=== PATIENT | male | born 1975 | race Hispanic/Latino ===

== ENCOUNTER 2021-09-12 08:00 | Outpatient (RCR) | payer BC, SELFPAY ==
--- NOTE | 2021-08-28 15:40 | PTOPEVAL ---
PHYSICAL THERAPY EVALUATION AND PLAN OF CARE 08-28-21 Thank you for referring Elmer Walls to [facility].? He is scheduled to be seen for therapy? 1x/week for 3 weeks. Please review, sign, date and return this plan of care IFRAH. I agree with and certify that the following plan of care is medically necessary. Referring Physician Date Attending Provider: Deejay Valentino DO CC: Júnior Chaudhry MD, per pt request *PT Outpatient Evaluation Document 08/28/21 14:30 LOIS (Rec: 08/28/21 15:40 LOIS [id number]) Past Medical History Source of Past Medical History Patient Neurological History Hx Neurological Disorders No Significant History Cardiovascular History Hx Hypercholesterolemia Yes: just started meds Respiratory History Hx Respiratory Disorders No Significant History Gastrointestinal History Hx Gastrointestinal Disorders No Significant History Musculoskeletal History Hx Musculoskeletal Disorders No Significant History Endocrine History Hx Endocrine Disorders No Significant History Evaluation Information Problem Diagnosis R lower leg pain Onset Aug 18, 2021 Subjective Information running, 07/29 marathon, about Query Text:As Reported By Patient/ mile 9 felt discomfort in calf Family , completed race; then had more pain after race, where issues with walking and putting wt on it; used cane to decrease wt on leg; rest 5 days, tried running, felt still something wrong with calf; have been elevating, heat and ice saw ortho yesterday--said strain gastroc muscle; said he could return to fitness center for UE exercises and some LE strength as tolerated; hold off on running for 2-3 weeks; is getting better and less pain since onset; Diagnostic Tests X-Rays For This Problem No Prior Level of Function Activity Level (Last 3 Months) Occupation office work, working from home ; Home Setting Mobility Assistive Devices (Used Last 3 None,Cane Months) Comments Additional Prior Level of Function normally use stand up desk, Comments but since calf pain, have been sitting for office work; normal fitness: run 5-7 miles/
--- NOTE | 2021-09-10 16:04 | PCPTNOTE ---
Patient called & cancelled scheduled appointment this date and changed re-eval to earlier date.
--- NOTE | 2021-09-12 08:53 | PTOPEVAL ---
PHYSICAL THERAPY DISCHARGE 09-12-21 Refer to the clinical summary below, for his status today, compared to the initial evaluation. The goals were achieved; he will be discharged from PT at this time. Thank you for referring Elmer Walls to [facility].? Please review, sign, date and return this Discharge report IFRAH. I agree with and certify that the following plan of care is medically necessary. Referring Physician Date Attending Provider: Deejay Valentino DO CC: Júnior Chaudhry MD, per pt request Assessment Status Discharge Subjective Information Elmer reports: has returned Query Text:As Reported By Patient/ to all of the usual fitness Family exercises but running; is doing eclliptical machine for 2 hours; is not sure about running again, worried about getting back to it again and not sure if calf is ready; is doing his exercises at home, stretching ankle over step; agree to discharge from PT; Pain Assessment Timing of Pain Assessment Timing of Pain Assessment Assessment Self Report Self Report Pain Level 0 Pain Score Pain Score 0: Self Report Additional Pain Score Comments B calves sore after work out Lower Extremity Muscle Strength Testing General Lower Extremity Strength Gross Lower Extremity Strength functional strength testing: - single leg standing R 60 /L 60 seconds- with good hip and trunk stability; ankle motion B; - single leg PF R 39 /L 30 reps- performed with shoes, have increased lateral motion of WB on foot; when shoes removed, less lateral motion of ankle; performed in front of mirror for visual cues to improve; - stand on BOSU board- ankle stabilization with DF/PF, in/ eversion; single leg standing with PRN touch of fingers on parallel bars; during activities, no reports of pain or issues with R calf verbal review of HEP: continue stretching, strengthening; progression of activity/ running as tolerated. using
== END 2021-09-13 08:49 | disposition home or self-care (01) ==
LOC: ANHPT 08:00
PROVIDERS: PCP Internal Medicine; Visit Provider Internal Medicine
DX: M79.661 Pain in right lower leg (principal)
CPT/HCPCS: 97110; 97161

== ENCOUNTER 2022-03-28 12:09 | Outpatient (CLI) | payer BC, SELFPAY ==
--- NOTE | ~2022-03-28 | US_ITS ---
EXAMINATION: US soft tissue head and neck DATE: 03/28/2022 13:07 INDICATION: Localized swelling, mass and lump, neck. TECHNIQUE: Multiple grayscale and Doppler ultrasound images of the neck were obtained. COMPARISON: None FINDINGS: There are normal lymph nodes in the patient's area of concern in left neck. IMPRESSION: 1. Normal lymph nodes in the patient's area of concern in left neck. Reviewed, dictated and finalized at location A.
== END 2022-03-28 12:10 | disposition home or self-care (01) ==
PROVIDERS: PCP Internal Medicine; Visit Provider Internal Medicine
DX: R22.1 Localized swelling, mass and lump, neck (principal)
CPT/HCPCS: 76536

== ENCOUNTER 2022-05-13 10:27 | Outpatient (CLI) | payer BC, SELFPAY ==
--- NOTE | ~2022-05-13 | XR_ITS ---
EXAM: XR finger 5th RT min 2V DATE: 05/13/2022 10:49 HISTORY: PAIN AT RT 5TH DIGIT MCP JT X3 WKS AFTER INJURY . COMPARISON: None available. FINDINGS: Normal mineralization. No fracture or dislocation. No lytic or blastic lesion. Mild degene rative change. No erosion or periosteal change. Soft tissues within normal limits. IMPRESSION: No acute osseous finding in the right fifth digit. Reviewed, dictated and finalized at location K.
== END 2022-05-13 10:28 | disposition home or self-care (01) ==
PROVIDERS: PCP Internal Medicine; Visit Provider Physician Assistant
DX: M79.646 Pain in unspecified finger(s) (principal)
CPT/HCPCS: 73140

== ENCOUNTER 2022-06-05 09:27 | Outpatient (CLI) | payer BC, SELFPAY | END 2022-06-05 09:28 | disposition home or self-care (01) | LOC: ANHAUDIO 09:29 | PROVIDERS: PCP Internal Medicine; Visit Provider Physician Assistant | DX: H91.90 Unspecified hearing loss, unspecified ear (principal) | CPT/HCPCS: 92557; 92567 ==

== ENCOUNTER 2022-07-09 09:18 | Outpatient (CLI) | payer BC, SELFPAY ==
--- NOTE | 2022-07-09 11:00 | NEURO_ITS ---
Impression: # Complains of right 5th finger numbness distally. # No Carpal Tunnel Syndrome or ulnar neuropathy. # Normal needle/EMG exam. # Clinical correlation recommended. Motor Nerve Conduction Upper Extremities Median Nerve Conduction Velocity (m/sec) Terminal Latency (msec) Response Voltage(mV) Elbow-Wrist Wrist Elbow Wrist Right 61 2.9 5 5 Left Ulnar Nerve Conduction Velocity (m/sec) Terminal Latency (msec) Response Voltage(mV) Above Elbow Below Elbow Wrist Above Elbow Below Elbow Wrist Right 59 2.6 8 9 Left F-Wave Latency Median (ms) Ulnar (ms) Right 26.6 27.0 Left Sensory Nerve Conduction Upper Extremities Median Nerve Stimulation Terminal Latency (msec) Wrist/Digit Response Voltage (uV) Wrist Right 2.5/2.5 74/69 Left Ulnar Nerve Stimulation Terminal Latency (msec) Wrist/Digit Response Voltage (uV) Wrist Right 2.3 61 Left Radial Nerve Terminal Latency (msec) Response Voltage(mV) Right 2.3 12 Left Left Right Muscles Examined Fibrillation Fasciculation Scarcity Voltage Duration Left Right Left Right Left Right Left Right Left Right Deltoid Biceps X Brachioradialis Triceps X Pronator Teres X Ext Indicis X Ext Digitorum X Abd Poll Brev X 1st Dorsal Interosseus Paraspinals MTDD
== END 2022-07-09 09:19 | disposition home or self-care (01) ==
PROVIDERS: PCP Internal Medicine; Visit Provider Physician Assistant
DX: R20.0 Anesthesia of skin (principal)
CPT/HCPCS: 95886; 95909

== ENCOUNTER 2023-06-04 01:35 | Day surgery (SDC) | payer BC, SELFPAY ==
[2023-05-22 15:11] VITALS: BMI 23.4
--- NOTE | 2023-06-02 09:21 | SUR.PREOP ---
Patient called regarding upcoming procedure. Reviewed preop instructions, appointment times, and procedure prep.
--- NOTE | 2023-06-03 16:50 | PM.HPGS ---
History of Present Illness History of Present Illness Consent: Risks, benefits, and alternatives have been discussed and questions answered. Patient agrees to proceed with procedure. Chief complaint: neoplasm screening Narrative: Elmer Walls is a 48 year old male referred for colon cancer screening. Review of Systems Review of Systems: All systems reviewed & are unremarkable except as noted in HPI and below PMFSH Family History Family History Father Family history of malignant neoplasm Patient's father is Social History Social History Smoking status: Never smoker Second hand tobacco smoke exposure: No Alcohol intake: never Lack of Transportation: No Lack of Food: Never True Current Housing: I Have Housing Concerned About Future Housing: No Difficulty Paying Gas/Electric Bills: No Difficulty Paying for Meds: No Currently Unemployed: No Education: Master's Degree or Higher Difficulty w/ Childcare or Family Care: No Living arrangements: with family Spiritual care concerns: No Meds Home Medications and Allergies Home Medications Medication Instructions Recorded Confirmed Type atorvastatin 20 mg tablet 20 mg PO DAILY #90 tabs 05/19/23 05/22/23 Rx Allergies Allergy/AdvReac Type Severity Reaction Status Date / Time shellfish derived Allergy Blister Verified 06/04/23 10:34 Exam Const: General: alert Orientation/consciousness: patient oriented x3 Resp: Auscultation: clear to auscultation bilaterally Cardio: Rhythm: regular rhythm GI: GI Palp: Yes Soft to palpation and No Tenderness to palpation present (GI) Neuro: General: patient oriented x3 Assessment and Plan Assessment and plan (1) Colon cancer screening: Code(s): Z12.11 - Encounter for screening for malignant neoplasm of colon Status: Acute Assessment and Plan: Colonoscopy with possible biopsy or polypectomy or cautery or injection of substances.
[2023-06-04 10:35] VITALS: BP 112/74; PULSE 68; RESP 20; TEMP 36.6; O2SAT 99
[2023-06-04 10:37] VITALS: BMI 24.7
[2023-06-04] MEDS: LACTATED RINGERS 1,000 ML 150 ML IV CONT (10:43)
--- NOTE | 2023-06-04 11:26 | WPDANESEPPF ---
Anes - Initial Pre Proc Eval Procedure: Operation Date: 06/04/23 12:30 Proposed Procedures p Screening Colonoscopy - Corky Hughes MD Date/Time: 06/04/23 11:26 Surgeon: Corky Hughes MD Pre Op Diagnosis: neoplasm screening Patient Data Age: 48 Gender: M Height: 1.7 m Weight: 71.6 kg Last Vital Signs Temp 97.8 F 06/04/23 10:35 Pulse 68 06/04/23 10:35 Resp 20 06/04/23 10:35 BP 112/74 06/04/23 10:35 Pulse Ox 99 06/04/23 10:35 O2 Del Method Room Air 06/04/23 10:35 Allergies Allergy/AdvReac Type Severity Reaction Status Date / Time shellfish derived Allergy Blister Verified 06/04/23 10:34 Home Medications Medication Instructions Recorded Confirmed Type atorvastatin 20 mg tablet 20 mg PO DAILY #90 tabs 05/19/23 05/22/23 Rx Patient hx anesthesia problems: none Family hx anesthesia problems: none Results Review: All pre-operative results and documents have been reviewed as part of the pre-operative evaluation. [facility] Family History Family History Father Family history of malignant neoplasm Patient's father is Social History Social History Smoking status: Never smoker Second hand tobacco smoke exposure: No Alcohol intake: never Lack of Transportation: No Lack of Food: Never True Current Housing: I Have Housing Concerned About Future Housing: No Difficulty Paying Gas/Electric Bills: No Difficulty Paying for Meds: No Currently Unemployed: No Education: Master's Degree or Higher Difficulty w/ Childcare or Family Care: No Living arrangements: with family Spiritual care concerns: No Anes - Eval Final PreProcedure Day of Procedure 06/04/23 11:26 Patient weight: normal Heart: regular rate and rhythm Lungs: clear to auscultation Airway: Mallampati scale class II Neurological: alert and oriented Last oral intake: >/= 8 hours ASA classification: II Emergent: no Anesthetic plan: proceed Anesthesia type and monitoring: general GIVS and standard monitoring Results Review: All pre-operative results and documents have been reviewed as part of the pre-operative evaluation. Informed Consent: The patient's anesthetic plan and its attendant risks and benefits were discussed with the patient/family/POA. Questions were solicited and answers provided to the satisfaction of the patient/family/POA.
[2023-06-04] MEDS: SIMETHICONE ORAL SUSPENSION 20 MG/0.3 ML 30 ML BOTTLE 0.6 ML IRRIGATION (11:36)
[2023-06-04 11:47] VITALS: BP 92/54; PULSE 71; RESP 18; O2SAT 97
[2023-06-04 11:57] VITALS: BP 105/62; PULSE 68; RESP 17; O2SAT 98
[2023-06-04 12:07] VITALS: BP 108/76; PULSE 69; RESP 19; O2SAT 100
== END 2023-06-04 12:22 | disposition home or self-care (01) ==
PROVIDERS: PCP Internal Medicine; Visit Provider Internal Medicine Gastroenterology
PROC: 0DJD8ZZ Inspection of Lower Intestinal Tract, Via Natural or Artificial Opening Endoscopic (ICD-10-PCS; CPT 45378; principal; 2023-06-04 12:30)
DX: Z12.11 Encounter for screening for malignant neoplasm of colon (principal); K64.8 Other hemorrhoids
CPT/HCPCS: 45378; J2704; J7120